=== PATIENT | male | born 1940 | race Caucasian/White ===

== ENCOUNTER 2018-08-04 06:12 | Emergency (ER) | payer OTHER, SELFPAY ==
[2018-08-04 06:14] VITALS: BP 126/58; PULSE 57; RESP 16; TEMP 36.7; O2SAT 95; BMI 30.3
--- NOTE | 2018-08-04 06:29 | CT_ITS ---
STUDY: CT ABDOMEN AND PELVIS WITHOUT CONTRAST REASON FOR EXAM: Male, 77 years old. Low abdominal pain, nausea, vomiting and diarrhea. RADIATION DOSAGE (If Supplied By Facility): CTDIvol = ( 14.53 ) mGy, DLP = ( 696.99 ) mGycm TECHNIQUE: Transaxial images were obtained from the dome of the diaphragm to the symphysis pubis without oral contrast, and without intravenous contrast. Sagittal and coronal images were reconstructed. Individualized dose optimization techniques were used for this CT. COMPARISON: CT of the abdomen and pelvis dated November 10, 2013. FINDINGS: The visualized lung bases are unremarkable. The visualized portions of the heart are within normal limits. The liver is not imaged in its entirety. The visualized liver has a grossly normal appearance. There may be a tiny cyst in the right lobe of liver. Normal gallbladder and extrahepatic biliary system. There are multiple benign calcified granulomata of the spleen. There is diffuse atrophy of the pancreas. Normal bilateral adrenal glands. There is mild right-sided hydronephrosis and hydroureter secondary to a mid ureteral calculus measuring approximately 4 mm in greatest dimension. There is a cyst arising from the lower pole of the right kidney measuring approximately 2 cm in greatest dimension. There is an exophytic cystic lesion arising from the upper pole of the left kidney measuring approximately 11.7 mm. There is a small hiatal hernia. There is no evidence for dilated bowel, ascites or pneumoperitoneum. Small bowel has a grossly normal appearance. Most of the stool is visible in the ascending colon and transverse colon. Descending colon is not distended which gives the appearance of thickening of the gudino. There is non-visualization of the appendix. There is patchy atherosclerotic calcification of the abdominal aorta with elongation and tortuosity, but without a demonstrated aneurysm. There is venous distention of the inferior vena cava (IVC). Normal retroperitoneum. The urinary bladder is not distended. There are prostatic calcifications. Normal abdominal wall. There is degenerative disc disease at the L1-2 and L2-3. There is eburnation of the endplates at L2-3 with large left-sided endplate osteophytes. 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 There are degenerative changes of both hips. CT/Abdomen/Pelvis without Cont IMPRESSION: Mild right-sided hydronephrosis and hydroureter secondary to mid ureteral calculus. Electronically Signed: Janay Zapata MD at 8:21 EDT , Service support ,
--- NOTE | 2018-08-04 06:30 | ED.DCSUM_ITS ---
- ER Visit Summary Date of Service: 08/04/18 Chief Complaint: Kidney pain History of Present Illness: The patient is a 77 M who presents with right flank pain. He has noticed a little bit of pain over the last couple of days but it became severe about 2 hours ago. He also reports nausea vomiting and diarrhea which all began this morning. No dysuria frequency urgency hematuria. He states it feels exactly the same as when he had a prior kidney stone. He did have a lithotripsy at that time by Dr. Pearce. He otherwise denies recent illness such as fever chest pain shortness of breath. Physical Examination: Afebrile vitals normal Moist mucous membranes Heart regular rate and rhythm Lungs are clear Abdomen soft no reproducible tenderness nondistended Flank and back nontender Alert Irritable Test Results: Labs notable for white count 13.8, glucose 152, BUN 28. Urinalysis shows 250 blood and 25-50 RBCs. 2+ calcium oxalate crystals. CT of the abdomen and pelvis radiology read is pending however on my review does appear to show a 3-1/2 mm mid right ureteral calculus. Emergency Department Course and Treatment: Patient was given IV fluids morphine Zofran. On reevaluation he is still complaining of significant pain. He was given further morphine. I discussed with the patient that if his symptoms are controlled he could be discharged to follow-up with urology as an outpatient. However if we are unable to control his pain and he would need admitted he would require transfer as we do not have urology coverage available at this time. Patient and family would like to see how he does with further pain medications before making this decision as he would prefer to avoid transfer if possible. Patient signed out to the oncoming physician for reevaluation. Treatment Plan: [] Disposition: Pending reevaluation Impression: Ureterolithiasis This note was generated with [employer] software. It may contain incorrect words, spelling, and punctuation that were not noted in review of the chart prior to signing ED Disposition - Plan for ED Patient: Referrals: Estevan Ortiz DO [Primary Care Provider] -
[2018-08-04] MEDS: 0.9% Normal Saline 1,000 ML 1000 ML IV (06:43)
[2018-08-04] MEDS: Morphine 4 MG/ML Syringe IV ×3 (06:43→08:44)
[2018-08-04 06:44] LABS: Bacteria 0 SEEN /hpf (None Seen); Mucous, Urine 0 SEEN /hpf (<or=2+); Squamous Epithelial Cells - UA 0 SEEN /hpf (0-5); White Blood Cells 0 SEEN /hpf (0-5)
[2018-08-04] MEDS: Ondansetron 4 MG/2 ML Vial IV (06:44)
[2018-08-04 06:46] LABS: Absolute Lymphocyte Count 2.49 X10^3/ul (0.83-4.51); Absolute Neutrophil Count 10.2 X10^3/uL (2.0-7.7); Basophil# 0.01 X10^3/uL; Basophil% 0.1 % (0-1); Eosinophil# 0.19 X10^3/uL; Eosinophils% 1.4 % (0-5); Hematocrit 41.5 % (40-54); Hemoglobin 13.8 g/dl (13.0-16.5); Lymphocyte # 2.49 X10^3/ul (4.0); Lymphocyte % 18.1 % (19-41); Mean Corp Hgb Conc 33.3 g/gl (32-36); Mean Corpuscular Hgb 27.4 pg (27.0-32.0); Mean Corpuscular Volume 82.5 fL (80-94); Mean Platelet Vol. 9.4 fl (6.2-12.0); Monocyte# 0.81 X10^3/uL; Monocyte% 5.9 % (0-10); Neutrophil # 10.23 X10^3/uL (2.7-7.7); Neutrophil % 74.3 % (47-70); Platelet Count 242 K/mm3 (150-450); RBC Distribution Width CV 13.3 % (11.6-14.6); RBC Distribution Width SD 39.7 fl (35.1-43.9); Red Blood Count 5.03 M/mm3 (4.6-6.2); White Blood Count 13.8 K/mm3 (4.4-11.0)
[2018-08-04 06:48] LABS: Anion Gap 10 (5-15); BUN 28 mg/dL (7-18); BUN/Creat Ratio 26.9 RATIO (10-20); Calcium,Total 8.3 mg/dL (8.5-10.1); Chloride 107 mmol/L (98-107); Creatinine, Serum 1.04 mg/dL (0.70-1.30); EST Glomerular Filtration Rate 74 mL/min (>60); Est Glom Filt Rate - Afr Amer 89 mL/min (>60); Estimated Creatinine Clearance 48.63 ml/min; Glucose 152 mg/dL (74-106); POSITIVE COUNT NO; POSITIVE DIFFERENTIAL NO; POSITIVE MORPHOLOGY NO; Sodium Level 142 mmol/L (136-145)
[2018-08-04 07:04] LABS: Color, Urine Yellow (Yellow); Glucose, Dipstick Normal (Normal); Ketone-Dipstick Negative (Negative); Leukocyte Esterase-Dipstick 25 /ul (Negative); Nitrite-Dipstick Negative (Negative); Occult Blood-Urine 250 /ul (Negative); Protein-Dipstick 30 mg/dl (Negative); Specific Gravity, Urine 1.025 (1.002-1.030); Urine Bilirubin Dipstick Negative (Negative); Urine Clarity Clear (Clear); Urine Urobilinogen Normal (Normal)
[2018-08-04 07:06] LABS: Red Blood Cells-Urine 25-50 SEEN /hpf (0-5)
[2018-08-04 07:07] LABS: Calcium Oxalate Crystals Ur 2+ /hpf (<or=2+)
[2018-08-04 08:19] VITALS: RESP 14
--- NOTE | 2018-08-04 08:45 | ED.DEP ---
ED Disposition - Plan for ED Patient: Instructions: KIDNEY STONE w/ Colic Prescriptions: Tamsulosin HCl [Flomax] 0.4 mg PO DAILY #7 cap Prescription Printed Oxycodone HCl/Acetaminophen [Percocet 5/325] 1 tab PO Q6H PRN PRN 3 Days #12 tab PRN Reason: Pain Prescription Printed Ondansetron [Zofran Odt] 4 mg PO Q8H PRN PRN #10 tab PRN Reason: Nausea Prescription Printed Referrals: Scott Frausto MD [STAFF PHYSICIAN] -
[2018-08-04 09:56] VITALS: BP 127/81; PULSE 77; RESP 14; O2SAT 99
== END 2018-08-04 09:58 | disposition home or self-care (01) ==
PROVIDERS: Emergency Provider Emergency Medicine; Family Provider Family Medicine; PCP Family Medicine
DX: N13.2 Hydronephrosis with renal and ureteral calculous obstruction (principal); Z87.442 Personal history of urinary calculi
CPT/HCPCS: 74176; 80048; 81001; 85025; 96361; 96374; 96375; 96376; 99283; J7030; A4216; J2405